=== PATIENT | female | born 1955 | race Caucasian/White ===

== ENCOUNTER 2017-04-19 14:17 | Emergency (ER) | payer OTHER ==
[2017-04-19] MEDS ORDERED: NS 0.9% 1000 ML* 1,000 ML IV SCH (15:00)
--- NOTE | 2017-04-19 15:16 | RAD ---
HISTORY: Tachycardia COMPARISONS: February 27, 2016 VIEWS: 1: frontal portable view of the chest at 2:57 PM FINDINGS: LINES AND TUBES: None. CARDIOMEDIASTINAL SILHOUETTE: The cardiomediastinal silhouette is normal for portable technique. PLEURA: The costophrenic angles are sharp. No pleural abnormalities are noted. LUNG PARENCHYMA: The lungs are clear. ABDOMEN: The upper abdomen is clear. There is no subphrenic gas. BONES AND SOFT TISSUES: No bone or soft tissue abnormalities are noted. A dorsal column stimulator is noted. IMPRESSION: NO ACTIVE CARDIOPULMONARY DISEASE.
[2017-04-19 15:43] LABS: Hematocrit 47 % (35-47); Hemoglobin 15.5 g/dl (12.0-16.0); Mean Corpuscular HGB Conc 33 g/dl (31-36); Mean Corpuscular Hemoglobin 28 pg (27-31); Mean Corpuscular Volume 85 fL (80-97); Mean Platelet Volume 10 um3 (7.4-10.4); Red Blood Count 5.49 10^6/ul (4.0-5.4); Red Cell Distribution Width 15 % (10.5-15); White Blood Count 9.1 10^3/ul (3.5-10.8)
[2017-04-19 15:44] LABS: Add Diff/Slide Review? Slide Review Added; Comments Flag Yes
[2017-04-19 16:07] LABS: Albumin 4.1 g/dL (3.2-5.2); BUN/Creatinine Ratio 20.8 (8-20); Calcium 10.9 mg/dL (8.6-10.3); EGFR Non-African American 59.1 (>60); Globulin 4.2 g/dL (2-4); Total Bilirubin 0.4 mg/dL (0.2-1.0); Total Protein 8.3 g/dL (6.4-8.9)
[2017-04-19 16:41] VITALS: BP 104/46
--- NOTE | 2017-04-19 19:03 | ED ---
Shelli Valdovinos Edward, scribed for Deep Lemos MD on 04/19/17 at 1507 . Palpitations / Dysrhythmia - HPI Summary HPI Summary: 62 y/o female BIBA c/o sudden onset episode of SVTs earlier today. The SVTs have resolved. Pt also c/o CP characterized as tightness during the episode of SVT; there was no CP before the SVT started. PMHx SVTs (approximately once per month). Past medications reviewed on visit. - History of Current Complaint Chief Complaint: EDDysrhythmPalp Time Seen by Provider: 04/19/17 14:49 Hx Obtained From: Patient Onset/Duration: Sudden Onset, Resolved Severity Currently: None Aggravating: Nothing Alleviating: Nothing Associated Signs & Symptoms: Chest Pain - tightness - Allergy/Home Medications Allergies/Adverse Reactions: Allergies Allergy/AdvReac Type Severity Reaction Status Date / Time Alprazolam [From Xanax] Allergy Anxiety Verified 04/19/17 14:44 Morphine Allergy Itching Verified 04/19/17 14:44 METALS Allergy ITCHY RASH Uncoded 04/19/17 14:44 PMH/Surg Hx/FS Hx/Imm Hx Previously Healthy: No Endocrine/Hematology History: Reports: Hx Anticoagulant Therapy - ASA, Hx Diabetes, Hx Thyroid Disease Comment Only: Other Endocrine/Hematological Disorders - hx Parathyroidectomy Cardiovascular History: Reports: Hx Angina, Hx Congestive Heart Failure, Hx Hypercholesterolemia, Hx Hypertension - ON MEDICATION FOR, Other Cardiovascular Problems/Disorders - SVT Denies: Hx Coronary Artery Disease, Hx Myocardial Infarction, Hx Pacemaker/ ICD, Hx Valvular Heart Disease Respiratory History: Reports: Hx Asthma - ROUTINE AND PRN INHALER, Hx Chronic Obstructive Pulmonary Disease (COPD), Hx Sleep Apnea GI History: Reports: Hx Hiatal Hernia History: Denies: Hx Dialysis, Hx Renal Disease Musculoskeletal History: Reports: Hx Arthritis - BACK, Hx Back Problems, Hx Orthopedic Injury - Compression fx L3. Laminectomy L1-S1, Other Musculoskeletal History - NEUROSTIMULATOR/SPINAL STENOSIS Sensory History: Reports: Hx Contacts or Glasses - for reading Denies: Hx Hearing Aid Opthamlomology History: Reports: Hx Contacts or Glasses - for reading Neurological History: Reports: Hx Nerve Disease, Other Neuro Impairments/ Disorders - neurostimulator Psychiatric History: Reports: Hx Anxiety, Hx Depression, Hx Substance Abuse - ETOH Denies: Hx Panic Disorder - Surgical History Surgery Procedure, Year, and Place: PARATHYROID TUMOR [id number]. APPENDIX. . 2006 [facility] SURGERY FOR SPINAL STENOSIS , neuro stimulator Hx Anesthesia Reactions: No Infectious Disease History: No Infectious Disease History: Denies: Traveled Outside the [place] in Last 30 Days - Family History Known Family History: Positive: Cardiac Disease - CHF, angina, AFib, Diabetes Family History: The patient's father had a history of CHF and angina and a brother has a history of AFib and a. pacer. Her father and brother both have diabetes and her mother had lung cancer. - Social History Alcohol Use: None Hx Substance Use: No Substance Use Type: Reports: None Hx Tobacco Use: Yes Smoking Status (MU): Former Smoker Type: Cigarettes Amount Used/How Often: 1ppd Have You Smoked in the Last Year: Yes Review of Systems Constitutional: Negative Eyes: Negative ENT: Negative Positive: Palpitations - SVT episode, Chest Pain - tightness Respiratory: Negative Gastrointestinal: Negative Genitourinary: Negative Musculoskeletal: Negative Skin: Negative Neurological: Negative Psychological: Normal All Other Systems Reviewed And Are Negative: Yes Physical Exam - Summary Physical Exam Summary: VITAL SIGNS: Reviewed. GENERAL: ~Patient is an obese female who is lying comfortable in the stretcher. ~Patient is not in any acute respiratory distress. HEAD AND FACE: No signs of trauma. ~No ecchymosis, hematomas or skull depressions. No sinus tenderness. EYES: PERRLA, EOMI x 2, No injected conjunctiva, no nystagmus. EARS: Hearing grossly intact. Ear canals and tympanic membranes are within normal limits. MOUTH: Oropharynx within normal limits. NECK: Supple, trachea is midline, no adenopathy, no JVD, no carotid bruit, no c- spine tenderness, neck with full ROM. CHEST: Symmetric, no tenderness at palpation LUNGS: Clear to auscultation bilaterally. No wheezing or crackles. CVS: Regular rate and rhythm, S1 and S2 present, no murmurs or gallops appreciated. ABDOMEN: Soft, non-tender. No signs of distention. No rebound no guarding, and no masses palpated. Bowel sounds are normal. EXTREMITIES: FROM in all major joints, no edema, no cyanosis or clubbing. NEURO: Alert and oriented x 3. No acute neurological deficits. Speech is normal and follows commands. SKIN: Dry and warm Triage Information Reviewed: Yes Vital Signs On Initial Exam: Initial Vitals BP 113/55 04/19/17 14:23 Vital Signs Reviewed: Yes - Issac Coma Scale Coma Scale Total: 15 Diagnostics - Vital Signs Vital Signs Temp Pulse Resp BP Pulse Ox 04/19/17 14:30 137 92/53 95 04/19/17 14:25 97 F 139 20 113/55 96 04/19/17 14:23 113/55 - Laboratory Lab Results: Lab Results 04/19/17 04/19/17 Range/Units 15:34 15:34 WBC 9.1 (3.5-10.8) 10^3/ul RBC 5.49 H (4.0-5.4) 10^6/ul Hgb 15.5 (12.0-16.0) g/dl Hct 47 (35-47) % MCV 85 (80-97) fL MCH 28 (27-31) pg MCHC 33 (31-36) g/dl RDW 15 (10.5-15) % Plt Count 221 (150-450) 10^3/ul MPV 10 (7.4-10.4) um3 Neut % (Auto) 66.0 (38-83) % Lymph % (Auto) 22.3 L (25-47) % [place] % (Auto) 8.5 (1-9) % Eos % (Auto) 2.5 (0-6) % Baso % (Auto) 0.7 (0-2) % Absolute Neuts (auto) 6.0 (1.5-7.7) 10^3/ul Absolute Lymphs (auto) 2.0 (1.0-4.8) 10^3/ul Absolute Monos (auto) 0.8 (0-0.8) 10^3/ul Absolute Eos (auto) 0.2 (0-0.6) 10^3/ul Absolute Basos (auto) 0.1 (0-0.2) 10^3/ul Absolute Nucleated RBC 0 10^3/ul Nucleated RBC % 0.1 Sodium 136 (133-145) mmol/L Potassium 4.0 (3.5-5.0) mmol/L Chloride 102 (101-111) mmol/L Carbon Dioxide 28 (22-32) mmol/L Anion Gap 6 (2-11) mmol/L BUN 20 (6-24) mg/dL Creatinine 0.96 H (0.51-0.95) mg/dL Est GFR ( Amer) 76.0 (>60) Est GFR (Non-Af Amer) 59.1 (>60) BUN/Creatinine Ratio 20.8 H (8-20) Glucose 197 H (70-100) mg/dL Calcium 10.9 H (8.6-10.3) mg/dL Magnesium 2.0 (1.9-2.7) mg/dL Total Bilirubin 0.40 (0.2-1.0) mg/dL AST 25 (13-39) U/L ALT 24 (7-52) U/L Alkaline Phosphatase 67 (34-104) U/L Total Protein 8.3 (6.4-8.9) g/dL Albumin 4.1 (3.2-5.2) g/dL Globulin 4.2 H (2-4) g/dL Albumin/Globulin Ratio 1.0 (1-3) Result Diagrams: 04/19/17 15:34 04/19/17 15:34 Lab Statement: Any lab studies that have been ordered have been reviewed, and results considered in the medical decision making process. - Radiology CXR Xray Interpretation: No Acute Changes - NO ACTIVE CARDIOPULMONARY DISEASE. ED PHYSICIAN REVIEWS AND AGREES Radiology Interpretation Completed By: Radiologist - EKG 1 EKG Interpretation: 15:13 - SR @ 69 BPM. LVH. NO OTHER ABNORMALITIES. EKG Comparison: No Significant Change - 02/27/16 Re-Evaluation - Re-Evaluation 1 Re-Evaluation Time: 16:37 Comment: Discuss plan of care Course/Dx - Course Assessment/Plan: 62 y/o female BIBA c/o sudden onset episode of SVTs earlier today. The SVTs have resolved. Pt also c/o CP characterized as tightness during the episode of SVT; there was no CP before the SVT started. PMHx SVTs ( approximately once per month). Past medications reviewed on visit. CXR SHOWS NO ACTIVE CARDIOPULMONARY DISEASE. EKG @ 15:13 - SR @ 69 BPM. LVH. NO OTHER ABNORMALITIES. Discussed the case with Dr. Kebede who wants us to check the pt' s electrolytes before discharging the patient. Test results without significant abnormalities except glucose 197 and calcium 10.9. In the ed course the pt was given IV fluids. The pt does not have electrolyte abnormalities. Pt has a history of SVT and reports she has an svt episode every month. She sees Dr. Reeder (cardiology) and takes beta and calcium channel blockers. I discussed with Dr. Kebede who recommends d/c if the pts electrolytes are wnl. Since the pt is asymptomatic, she will be d/c home with f/u with PCP. - Diagnoses Differential Diagnosis/HQI/PQRI: Positive: Paroxymal SVT, V-Tach Provider Diagnoses: SVT (supraventricular tachycardia) Discharge - Discharge Plan Condition: Stable Disposition: HOME Patient Education Materials: Supraventricular Tachycardia (ED) Referrals: Ara Cooper MD [Primary Care Provider] - 4 Days (PLEASE F/U IN 3-5 DAYS ) The documentation as recorded by the Shelli miguel Edward accurately reflects the service I personally performed and the decisions made by , Deep Lemos MD.
== END 2017-04-19 16:50 | disposition home or self-care (01) ==
LOC: ED 14:17
DX: I47.1 Supraventricular tachycardia (principal); F41.9 Anxiety disorder, unspecified; F32.9 Major depressive disorder, single episode, unspecified; Z79.82 Long term (current) use of aspirin; E11.9 Type 2 diabetes mellitus without complications; E07.9 Disorder of thyroid, unspecified; I10 Essential (primary) hypertension; I50.9 Heart failure, unspecified; E78.00 Pure hypercholesterolemia, unspecified; J45.909 Unspecified asthma, uncomplicated; Z88.5 Allergy status to narcotic agent; Z87.891 Personal history of nicotine dependence
CPT/HCPCS: 36415; 71010; 80053; 83735; 85025; 93005; 99282

== ENCOUNTER 2021-01-21 08:29 | Inpatient (IN) ==
[2021-01-21 09:52] LABS: ABS Basophils 0.1 10^3/ul (0-0.2); ABS Eosinophils 0.2 10^3/ul (0-0.6); ABS Neutrophils 8.9 10^3/ul (1.5-7.7); Eosinophil % 1.4 %; Hematocrit 35 % (35-47); Hemoglobin 11.6 g/dL (12.0-16.0); Lymphocyte % 9.2 %; Mean Corpuscular HGB Conc 34 g/dL (31-36); Mean Corpuscular Hemoglobin 28 pg (27-31); Mean Corpuscular Volume 82 fL (80-97); Mean Platelet Volume 9.9 fL (7.4-10.4); Platelet Count 181 10^3/uL (150-450); Red Blood Count 4.23 10^6 /uL (3.70-4.87); Red Cell Distribution Width 15 % (10-15); White Blood Count 11.1 10^3/uL (3.5-10.8)
[2021-01-21 10:11] LABS: Albumin 3.5 g/dL (3.2-5.2); Albumin/Globulin Ratio 0.9 (1-3); Calcium 10.4 mg/dL (8.6-10.3); EGFR African American 11.5 (>60); EGFR Non-African American 9.5 (>60); Globulin 3.7 g/dL (2-4); Magnesium 2.5 mg/dL (1.9-2.7); Total Bilirubin 0.6 mg/dL (0.2-1.0); Total Protein 7.2 g/dL (6.4-8.9)
[2021-01-21 10:12] LABS: Potassium 5.6 mmol/L (3.5-5.0)
[2021-01-21] MEDS ORDERED: fentaNYL 100 mcg/2 ml 50 MCG/ML VIAL IV SLOW PU ONE (10:47)
[2021-01-21] MEDS ORDERED: NS 0.9% 1000 ml BAG 1,000 ML IV ONE (12:25)
[2021-01-21] MEDS ORDERED: Dextrose 50% Syringe 50 ml 25 GM/50 ML SYRINGE IV PUSH PRN (14:01)
[2021-01-21 15:12] LABS: TSH Ultra Thyroid Stim Horm 1.82 mcIU/mL (0.34-5.60)
[2021-01-21 16:45] LABS: Rapid COVID-19 Molecular Undetected (Undetected)
[2021-01-21] MEDS: Heparin 5000 UNITS/ML 1 mL VIAL SUBCUT SCH ×2 (17:54→20:03)
[2021-01-21] MEDS ORDERED: fentaNYL PATCH 50 MCG/HR 1 PATCH TRANSDERM SCH (18:00)
[2021-01-21] MEDS: NS 0.9% 1000 ml BAG 1,000 ML IV SCH (18:30)
[2021-01-21] MEDS: fentaNYL Patch Check Q Shift NOTE FOLLOW UP SCH (19:48)
[2021-01-21] MEDS: Mometasone/Formoter 200/5 MDI INH SCH (20:06)
[2021-01-21 20:33] LABS: Urine Appearance Cloudy; Urine Bilirubin Negative (Negative); Urine Blood Negative (Negative); Urine Color Yellow; Urine Glucose Negative (Negative); Urine Ketones Negative (Negative); Urine Nitrite Negative (Negative); Urine Protein Negative (Negative); Urine Urobilinogen Negative (Negative)
[2021-01-22] MEDS: Heparin 5000 UNITS/ML 1 mL VIAL SUBCUT SCH ×3 (05:52→21:57)
[2021-01-22 06:53] LABS: ABS Eosinophils 0.3 10^3/ul (0-0.6); Eosinophil % 2.6 %; Hematocrit 34 % (35-47); Hemoglobin 11.5 g/dL (12.0-16.0); Lymphocyte % 8.6 %; Mean Corpuscular HGB Conc 34 g/dL (31-36); Mean Corpuscular Hemoglobin 28 pg (27-31); Mean Corpuscular Volume 83 fL (80-97); Mean Platelet Volume 9.9 fL (7.4-10.4); Platelet Count 179 10^3/uL (150-450); Red Blood Count 4.15 10^6 /uL (3.70-4.87); Red Cell Distribution Width 16 % (10-15); White Blood Count 11.3 10^3/uL (3.5-10.8)
[2021-01-22] MEDS: fentaNYL Patch Check Q Shift NOTE FOLLOW UP SCH ×2 (07:03→19:18)
[2021-01-22 07:10] LABS: Albumin 3.5 g/dL (3.2-5.2); Albumin/Globulin Ratio 0.9 (1-3); Calcium 10.2 mg/dL (8.6-10.3); EGFR African American 15.8 (>60); EGFR Non-African American 13.1 (>60); Globulin 3.7 g/dL (2-4); Total Bilirubin 0.8 mg/dL (0.2-1.0); Total Protein 7.2 g/dL (6.4-8.9)
[2021-01-22 07:20] LABS: Potassium 5.9 mmol/L (3.5-5.0)
[2021-01-22] MEDS: DULoxetine DR 30 mg CAP PO SCH (07:23)
[2021-01-22] MEDS: Mometasone/Formoter 200/5 MDI INH SCH ×2 (07:54→20:46)
[2021-01-22] MEDS ORDERED: Patiromer POWDER 8.4 GM PAK PO ONE (08:37)
[2021-01-22] MEDS: NS 0.9% 1000 ml BAG 1,000 ML IV SCH (13:14)
[2021-01-22 16:51] LABS: Calcium 10.5 mg/dL (8.6-10.3); EGFR African American 21.1 (>60); EGFR Non-African American 17.5 (>60); Potassium 5.7 mmol/L (3.5-5.0)
[2021-01-22] MEDS: Furosemide 40 mg/4 ml IV VIAL IV SLOW PU SCH (17:15)
[2021-01-23] MEDS: fentaNYL Patch Check Q Shift NOTE FOLLOW UP SCH ×2 (06:42→19:20)
[2021-01-23 06:47] LABS: Calcium 10.5 mg/dL (8.6-10.3)
[2021-01-23 06:52] LABS: EGFR African American 27.7 (>60); EGFR Non-African American 22.9 (>60)
[2021-01-23 06:55] LABS: Potassium 5.5 mmol/L (3.5-5.0)
[2021-01-23 07:22] LABS: Calcium (PTH Intact) 10.5 mg/dL (8.6-10.3)
[2021-01-23] MEDS: Mometasone/Formoter 200/5 MDI INH SCH ×2 (08:19→21:36)
[2021-01-23] MEDS: Heparin 5000 UNITS/ML 1 mL VIAL SUBCUT SCH ×3 (08:25→20:43)
[2021-01-23] MEDS: DULoxetine DR 30 mg CAP PO SCH (08:26)
[2021-01-23] MEDS: Furosemide 40 mg/4 ml IV VIAL IV SLOW PU SCH ×2 (08:26→17:28)
[2021-01-23 10:38] LABS: Phosphorus 2.2 mg/dL (2.5-5.0)
[2021-01-23 11:14] LABS: Vitamin D Total 25(OH) 42.8 ng/mL (20-50)
[2021-01-23 12:27] LABS: EGFR African American 28.6 (>60); EGFR Non-African American 23.6 (>60)
[2021-01-23] MEDS ORDERED: Perflutren Lipid Microsphere 3 ML VIAL ONE (12:29)
[2021-01-23 12:31] LABS: Potassium 5.8 mmol/L (3.5-5.0)
[2021-01-23] MEDS ORDERED: Sodium Polystyrene ORAL.SUSP 15 GM/60 ML BTL PO ONE (14:25)
[2021-01-23 14:59] LABS: Calcium 10.8 mg/dL (8.6-10.3); EGFR African American 29.4 (>60); EGFR Non-African American 24.3 (>60)
[2021-01-23 15:17] LABS: Potassium 5.3 mmol/L (3.5-5.0)
[2021-01-24] MEDS: Heparin 5000 UNITS/ML 1 mL VIAL SUBCUT SCH (05:09)
[2021-01-24 07:14] LABS: Calcium 10.2 mg/dL (8.6-10.3); EGFR African American 33.1 (>60); EGFR Non-African American 27.4 (>60); Potassium 4.8 mmol/L (3.5-5.0)
[2021-01-24] MEDS: fentaNYL Patch Check Q Shift NOTE FOLLOW UP SCH (07:37)
[2021-01-24] MEDS: DULoxetine DR 30 mg CAP PO SCH (07:55)
[2021-01-24 08:15] VITALS: BP 160/69
[2021-01-24] MEDS: Mometasone/Formoter 200/5 MDI INH SCH (09:22)
== END 2021-01-24 12:25 | DRG 682 ==
LOC: ED 08:29 → MED 17:06
PROVIDERS: ADMIT Internal Medicine; ATTEND Internal Medicine

== ENCOUNTER 2021-03-16 08:44 | Inpatient (IN) ==
[2021-03-16] MEDS ORDERED: NS 0.9% 1000 ml BAG 1,000 ML IV ONE (08:57)
[2021-03-16 09:35] LABS: ABS Basophils 0.1 10^3/ul (0-0.2); ABS Lymphocytes 0.9 10^3/ul (1.0-4.8); ABS Neutrophils 7.8 10^3/ul (1.5-7.7); Eosinophil % 0.4 %; Hematocrit 45 % (35-47); Hemoglobin 15.4 g/dL (12.0-16.0); Lymphocyte % 9.4 %; Mean Corpuscular HGB Conc 34 g/dL (31-36); Mean Corpuscular Hemoglobin 28 pg (27-31); Mean Corpuscular Volume 81 fL (80-97); Mean Platelet Volume 8.9 fL (7.4-10.4); Platelet Count 347 10^3/uL (150-450); Red Blood Count 5.55 10^6 /uL (3.70-4.87); Red Cell Distribution Width 16 % (10-15); White Blood Count 9.8 10^3/uL (3.5-10.8)
[2021-03-16 09:56] LABS: ALT 23 U/L (7-52); AST 34 U/L (13-39); Albumin 3.9 g/dL (3.2-5.2); Albumin/Globulin Ratio 0.8 (1-3); Alkaline Phosphatase 109 U/L (35-149); Blood Urea Nitrogen 38 mg/dL (6-24); C Reactive Protein 17.31 mg/L (<8.01); Calcium 12.7 mg/dL (8.6-10.3); Chloride 73 mmol/L (101-111); EGFR African American 35.1 (>60); Globulin 4.8 g/dL (2-4); Glucose 250 mg/dL (70-100); Potassium 2.8 mmol/L (3.5-5.0); Sodium 128 mmol/L (135-145); Total Protein 8.7 g/dL (6.4-8.9)
[2021-03-16 10:20] LABS: Anion Gap 10 mmol/L (2-11); CO2 Carbon Dioxide 45 mmol/L (22-32)
[2021-03-16 10:41] LABS: TSH Ultra Thyroid Stim Horm 1.28 mcIU/mL (0.34-5.60)
[2021-03-16] MEDS ORDERED: Potassium Chlor 20 meq TAB.ER PO ONE (10:42)
[2021-03-16 11:31] LABS: Rapid COVID-19 Molecular Undetected (Undetected)
[2021-03-16 11:34] LABS: PCO2 Arterial 46 mmHg (35-45); PO2 Arterial 77 mmHg (80-100)
[2021-03-16] MEDS ORDERED: Albuterol HFA INHALER 8 gm MDI INH PRN (13:17)
[2021-03-16] MEDS ORDERED: Dextrose 50% Syringe 50 ml 25 GM/50 ML SYRINGE IV PUSH PRN (13:26)
[2021-03-16] MEDS ORDERED: NS 0.9% 1000 ml BAG 1,000 ML IV SCH (13:30)
[2021-03-16] MEDS ORDERED: fentaNYL PATCH 50 MCG/HR 1 PATCH TRANSDERM SCH (14:00)
[2021-03-16] MEDS: KCL 20 MEQ/100 ML IVPREMIX 20 MEQ/100 ML BAG IV SCH ×2 (14:40→22:15)
[2021-03-16] MEDS: Heparin 5000 UNITS/ML 1 mL VIAL SUBCUT SCH ×2 (14:44→21:33)
[2021-03-16 15:11] LABS: Urine Appearance Cloudy; Urine Bilirubin Negative (Negative); Urine Blood Negative (Negative); Urine Color Yellow; Urine Glucose Negative (Negative); Urine Ketones Negative (Negative); Urine Nitrite Negative (Negative); Urine Protein Negative (Negative); Urine Specific Gravity 1.009 (1.002-1.030); Urine Urobilinogen Negative (Negative)
[2021-03-16] MEDS ORDERED: Metoprolol Tartrate 5 mg VIAL 5 ml VIAL (1 mg/ml) IV ONE (16:53)
[2021-03-16 19:20] LABS: Troponin I 0.08 ng/mL (<0.03)
[2021-03-16] MEDS: fentaNYL Patch Check Q Shift NOTE FOLLOW UP SCH (19:23)
[2021-03-16] MEDS ORDERED: Insulin GLARGINE 100 un/ml 10 ml VIAL SUBCUT SCH ×3 (21:00)
[2021-03-16] MEDS: Mometasone/Formoter 200/5 MDI INH SCH (21:08)
[2021-03-16] MEDS: Potassium Chlor 20 meq TAB.ER PO SCH (21:33)
[2021-03-17] MEDS: KCL 20 MEQ/100 ML IVPREMIX 20 MEQ/100 ML BAG IV SCH (01:52)
[2021-03-17] MEDS: Heparin 5000 UNITS/ML 1 mL VIAL SUBCUT SCH ×2 (05:46→12:46)
[2021-03-17] MEDS ORDERED: fentaNYL PATCH 50 MCG/HR 1 PATCH TRANSDERM SCH ×2 (06:00→08:00)
[2021-03-17 06:30] LABS: ABS Basophils 0.1 10^3/ul (0-0.2); ABS Eosinophils 0.1 10^3/ul (0-0.6); ABS Lymphocytes 1.8 10^3/ul (1.0-4.8); ABS Monocytes 1.1 10^3/ul (0-0.8); ABS Neutrophils 4.4 10^3/ul (1.5-7.7); Hematocrit 40 % (35-47); Hemoglobin 13.5 g/dL (12.0-16.0); Lymphocyte % 23.8 %; Mean Corpuscular HGB Conc 34 g/dL (31-36); Mean Corpuscular Hemoglobin 28 pg (27-31); Mean Corpuscular Volume 81 fL (80-97); Mean Platelet Volume 8.8 fL (7.4-10.4); Platelet Count 292 10^3/uL (150-450); Red Blood Count 4.89 10^6 /uL (3.70-4.87); Red Cell Distribution Width 16 % (10-15); White Blood Count 7.5 10^3/uL (3.5-10.8)
[2021-03-17 06:45] LABS: Calcium 10.9 mg/dL (8.6-10.3); EGFR African American 39.4 (>60); EGFR Non-African American 32.6 (>60); Potassium 3.4 mmol/L (3.5-5.0)
[2021-03-17] MEDS: Mometasone/Formoter 200/5 MDI INH SCH ×2 (07:29→20:04)
[2021-03-17] MEDS: fentaNYL Patch Check Q Shift NOTE FOLLOW UP SCH ×2 (08:24→18:51)
[2021-03-17] MEDS: Aspirin EC 81 mg TAB.EC (enteric coated) PO SCH (08:34)
[2021-03-17] MEDS: DULoxetine DR 30 mg CAP PO SCH (08:34)
[2021-03-17] MEDS: Potassium Chlor 20 meq TAB.ER PO SCH ×2 (08:34→20:57)
[2021-03-17 11:10] LABS: Magnesium 2.2 mg/dL (1.9-2.7)
[2021-03-17] MEDS ORDERED: Potassium Chlor 20 meq TAB.ER PO ONE (14:59)
[2021-03-17] MEDS ORDERED: Insulin GLARGINE 100 un/ml 10 ml VIAL SUBCUT SCH (21:00)
[2021-03-17] MEDS ORDERED: Enoxaparin 40 MG/0.4 ML SYR SUBCUT SCH (21:00)
[2021-03-18] MEDS: fentaNYL Patch Check Q Shift NOTE FOLLOW UP SCH (06:49)
[2021-03-18 06:59] LABS: ABS Basophils 0.1 10^3/ul (0-0.2); ABS Eosinophils 0.1 10^3/ul (0-0.6); ABS Lymphocytes 1.7 10^3/ul (1.0-4.8); ABS Monocytes 0.9 10^3/ul (0-0.8); ABS Neutrophils 6.2 10^3/ul (1.5-7.7); Eosinophil % 1.6 %; Hematocrit 41 % (35-47); Hemoglobin 13.9 g/dL (12.0-16.0); Lymphocyte % 18.7 %; Mean Corpuscular HGB Conc 34 g/dL (31-36); Mean Corpuscular Hemoglobin 28 pg (27-31); Mean Corpuscular Volume 81 fL (80-97); Mean Platelet Volume 8.9 fL (7.4-10.4); Platelet Count 311 10^3/uL (150-450); Red Blood Count 5.06 10^6 /uL (3.70-4.87); Red Cell Distribution Width 16 % (10-15)
[2021-03-18 07:16] LABS: Calcium 10.9 mg/dL (8.6-10.3); EGFR African American 48.9 (>60); EGFR Non-African American 40.4 (>60); Potassium 3.1 mmol/L (3.5-5.0)
[2021-03-18] MEDS: Mometasone/Formoter 200/5 MDI INH SCH (07:28)
[2021-03-18] MEDS: Aspirin EC 81 mg TAB.EC (enteric coated) PO SCH (08:46)
[2021-03-18] MEDS: DULoxetine DR 30 mg CAP PO SCH (08:46)
[2021-03-18] MEDS: Potassium Chlor 20 meq TAB.ER PO SCH (08:46)
[2021-03-18] MEDS ORDERED: Potassium Chlor 20 meq TAB.ER PO ONE (09:18)
[2021-03-18 10:48] VITALS: BP 148/54
== END 2021-03-18 13:12 | disposition home or self-care (01) | DRG 641 ==
LOC: ED 08:44 → SUATTDRO 13:09 → MED 13:09 → MEDTELE 03-18 09:56
PROVIDERS: ADMIT Internal Medicine; ATTEND Internal Medicine